=== PATIENT | female | born 1960 | race Two or more races ===

== ENCOUNTER 2018-08-20 16:57 | Emergency (ER) | payer OTHER ==
[~2018-08-20] VITALS: Ht 165.1 cm; Wt 70.8 kg
[2018-08-20] MEDS ORDERED: SYNTHROID112 MCG (17:43)
[2018-08-20] MEDS ORDERED: LYRICA150 MG (17:43)
== END 2018-08-20 19:59 | disposition home or self-care (01) ==
LOC: ER 16:57
DX: M79.7 Fibromyalgia (principal); M25.512 Pain in left shoulder; M79.602 Pain in left arm